=== PATIENT | male | born 1980 | race Caucasian/White ===

== ENCOUNTER → 2022-10-08 09:33 | Outpatient (BNVA) | payer MEDICAID, SELFPAY | PROVIDERS: Visit Provider Emergency Medicine | DX: M54.50 Low back pain, unspecified (principal); M54.9 Dorsalgia, unspecified | CPT/HCPCS: 72072; 72100 ==

== ENCOUNTER → 2023-02-23 09:03 | Outpatient (BNVA) | payer MEDICAID, SELFPAY | PROVIDERS: PCP Family Medicine; Visit Provider Family Medicine | DX: I10 Essential (primary) hypertension (principal) | CPT/HCPCS: 80053; 80061 ==

== ENCOUNTER → 2024-02-23 16:13 | Outpatient (BNVA) | payer MEDICAID, SELFPAY | PROVIDERS: PCP Family Medicine; Visit Provider Emergency Medicine | DX: M79.671 Pain in right foot (principal) | CPT/HCPCS: 73630 ==

== ENCOUNTER → 2024-07-11 10:21 | Outpatient (BNVA) | payer SELFPAY | PROVIDERS: PCP Family Medicine; Visit Provider Nurse Practitioner Family | DX: Z79.1 Long term (current) use of non-steroidal anti-inflammatories (NSAID) (principal); I10 Essential (primary) hypertension; M25.511 Pain in right shoulder; M54.50 Low back pain, unspecified; G89.29 Other chronic pain | CPT/HCPCS: 80053; 85025 ==

== ENCOUNTER 2024-11-11 06:30 | Outpatient (RCR) | payer MEDICAID, SELFPAY | END 2024-12-08 23:59 | disposition home or self-care (01) | LOC: SPT 06:30 | PROVIDERS: PCP Family Medicine; Visit Provider Family Medicine | DX: M54.50 Low back pain, unspecified (principal); G89.29 Other chronic pain | CPT/HCPCS: 97110; 97162; G0283 ==

== ENCOUNTER 2024-11-17 09:27 | Outpatient (CLI) | payer MEDICAID, SELFPAY ==
--- NOTE | 2024-11-17 10:15 | MR_ITS ---
WS: [id number] MRI LUMBAR SPINE NONCONTRAST TECHNIQUE: Sagittal T1, T2 and STIR imaging. Axial T1 and T2 imaging. CLINICAL INFORMATION: M54.50 - Low back pain, unspecified COMPARISON: None. FINDINGS: Mild lumbar curve. No acute compression. Disc bulging worse at L3-L5. Prominent central disc protrusion cervical spine on [employer] [facility] at C6-7. Congenital segmentation anomaly T10 and T11. L1-L2: Mild facet arthropathy. Spinal canal and foramen are patent. L2-L3: Mild annular bulging. Tiny RIGHT foraminal protrusion with mild RIGHT foraminal narrowing. Mild facet arthropathy. L3-L4: Mild annular bulging with a RIGHT paracentral disc protrusion. Impingement on the RIGHT subarticular recess and traversing RIGHT L4 nerve root. Mild central canal stenosis. Disc protrusion measures approximately 5 mm in AP dimension. Foramen are patent. Mild facet arthropathy. L4-L5: Mild annular bulging with a tiny RIGHT subarticular protrusion. Impingement on the RIGHT subarticular recess and traversing RIGHT L5 nerve root. Mild central canal stenosis. Mild facet arthropathy. Foramen are patent. L5-S1: Mild annular bulging. Slight impingement of traversing S1 nerve root in the subarticular recess. Moderate facet arthropathy. Foramen are patent. Visualized pelvic bony structures: Normal. Paravertebral soft tissues: Normal. MR/MR lumbar spine wo con* [id number] IMPRESSION: 1. Mild lumbar curve. No acute compression. 2. Prominent central disc protrusion L3-4 with mild central canal stenosis and impingement of the RIGHT greater than LEFT traversing L4 nerve roots. 3. RIGHT subarticular protrusion L4-5 impinges the traversing RIGHT L5 nerve r oot with mild central canal stenosis. 4. Disc bulge L5-S1 slightly impinges the RIGHT S1 nerve root. 5. Mild to moderate facet arthropathy L3-L5. 6. 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 7. Prominent central protrusion cervical spine [employer] [facility] at C6-7 eccentric to the LEFT.
== END 2024-11-17 09:28 | disposition home or self-care (01) ==
LOC: RAD 09:28
PROVIDERS: PCP Family Medicine; Visit Provider Family Medicine
DX: M51.26 Other intervertebral disc displacement, lumbar region (principal); G89.29 Other chronic pain; Z87.81 Personal history of (healed) traumatic fracture; M54.17 Radiculopathy, lumbosacral region; M43.8X6 Other specified deforming dorsopathies, lumbar region; M48.061 Spinal stenosis, lumbar region without neurogenic claudication; M51.379 Other intervertebral disc degeneration, lumbosacral region without mention of lumbar back pain or lower extremity pain; M47.896 Other spondylosis, lumbar region; R93.7 Abnormal findings on diagnostic imaging of other parts of musculoskeletal system; M50.223 Other cervical disc displacement at C6-C7 level; M51.369 Other intervertebral disc degeneration, lumbar region without mention of lumbar back pain or lower extremity pain
CPT/HCPCS: 72148

== ENCOUNTER → 2024-12-04 14:33 | Outpatient (BNVA) | payer MEDICAID, SELFPAY | PROVIDERS: PCP Family Medicine; Visit Provider Nurse Practitioner Family | DX: M54.50 Low back pain, unspecified (principal); G89.29 Other chronic pain; F17.200 Nicotine dependence, unspecified, uncomplicated | CPT/HCPCS: 99214 ==

== ENCOUNTER → 2024-12-05 14:37 | Outpatient (BNVA) | payer MEDICAID, SELFPAY | PROVIDERS: PCP Family Medicine; Visit Provider Orthopaedic Surgery | DX: M54.50 Low back pain, unspecified (principal); G89.29 Other chronic pain | CPT/HCPCS: 72110; 99204 ==

== ENCOUNTER 2024-12-09 06:00 | Outpatient (RCR) | payer MEDICAID, SELFPAY | END 2025-01-08 23:59 | disposition home or self-care (01) | LOC: SPT 06:00 | PROVIDERS: PCP Family Medicine; Visit Provider Family Medicine | DX: M54.50 Low back pain, unspecified (principal); G89.29 Other chronic pain | CPT/HCPCS: 97110; G0283 ==

== ENCOUNTER → 2024-12-25 14:37 | Outpatient (BNVA) | payer MEDICAID, SELFPAY | PROVIDERS: PCP Family Medicine; Visit Provider Nurse Practitioner Family | DX: M79.18 Myalgia, other site (principal); M54.50 Low back pain, unspecified; G89.29 Other chronic pain; F17.200 Nicotine dependence, unspecified, uncomplicated | CPT/HCPCS: 20553; 99214; J1010; J3490 ==

== ENCOUNTER → 2025-01-08 13:51 | Outpatient (BNVA) | payer MEDICAID, SELFPAY | PROVIDERS: PCP Family Medicine; Visit Provider Nurse Practitioner Family | DX: M54.50 Low back pain, unspecified (principal); G89.29 Other chronic pain | CPT/HCPCS: 99213 ==

== ENCOUNTER 2025-01-09 05:00 | Outpatient (RCR) | payer MEDICAID, SELFPAY | END 2025-02-07 23:59 | disposition home or self-care (01) | LOC: SPT 05:00 | PROVIDERS: PCP Family Medicine; Visit Provider Family Medicine | DX: M54.50 Low back pain, unspecified (principal); G89.29 Other chronic pain | CPT/HCPCS: 97110; 97530; G0283 ==

== ENCOUNTER → 2025-01-17 13:06 | Outpatient (BNVA) | payer MEDICAID, SELFPAY | PROVIDERS: PCP Family Medicine; Visit Provider Anesthesiology Pain Medicine | DX: M54.16 Radiculopathy, lumbar region (principal); M54.50 Low back pain, unspecified; G89.29 Other chronic pain; F17.200 Nicotine dependence, unspecified, uncomplicated | CPT/HCPCS: 64483; 64484; J1100; J3490; J9999 ==

== ENCOUNTER → 2025-01-29 12:53 | Outpatient (BNVA) | payer MEDICAID, SELFPAY | PROVIDERS: PCP Family Medicine; Visit Provider Nurse Practitioner Family | DX: M54.50 Low back pain, unspecified (principal); G89.29 Other chronic pain; F17.200 Nicotine dependence, unspecified, uncomplicated | CPT/HCPCS: 99214 ==

== ENCOUNTER → 2025-02-07 13:14 | Outpatient (BNVA) | payer MEDICAID, SELFPAY | PROVIDERS: PCP Family Medicine; Visit Provider Anesthesiology Pain Medicine | DX: M54.16 Radiculopathy, lumbar region (principal); M54.50 Low back pain, unspecified; G89.29 Other chronic pain | CPT/HCPCS: 64493; 64494; 64495; J3490; J9999 ==

== ENCOUNTER 2025-02-08 05:00 | Outpatient (RCR) | payer MEDICAID, SELFPAY | END 2025-03-10 23:59 | disposition home or self-care (01) | LOC: SPT 05:00 | PROVIDERS: PCP Family Medicine; Visit Provider Family Medicine | DX: M54.50 Low back pain, unspecified (principal); G89.29 Other chronic pain | CPT/HCPCS: 97110; 97530 ==

== ENCOUNTER → 2025-02-21 10:43 | Outpatient (BNVA) | payer MEDICAID, SELFPAY | PROVIDERS: PCP Family Medicine; Visit Provider Nurse Practitioner Family | DX: M54.50 Low back pain, unspecified (principal); G89.29 Other chronic pain | CPT/HCPCS: 99214 ==

== ENCOUNTER → 2025-03-08 13:50 | Outpatient (BNVA) | payer MEDICAID, SELFPAY | PROVIDERS: PCP Family Medicine; Visit Provider Orthopaedic Surgery | DX: M54.50 Low back pain, unspecified (principal); G89.29 Other chronic pain | CPT/HCPCS: 99213 ==

== ENCOUNTER 2025-03-11 05:00 | Outpatient (RCR) | payer MEDICAID, SELFPAY | END 2025-04-09 23:59 | disposition home or self-care (01) | LOC: SPT 05:00 | PROVIDERS: PCP Family Medicine; Visit Provider Family Medicine | DX: M54.50 Low back pain, unspecified (principal); G89.29 Other chronic pain | CPT/HCPCS: 97110; 97530 ==

== ENCOUNTER → 2025-03-13 13:35 | Outpatient (BNVA) | payer MEDICAID, SELFPAY | PROVIDERS: PCP Family Medicine; Visit Provider Anesthesiology Pain Medicine | DX: M47.816 Spondylosis without myelopathy or radiculopathy, lumbar region (principal); M54.9 Dorsalgia, unspecified; M54.50 Low back pain, unspecified; G89.29 Other chronic pain | CPT/HCPCS: 64493; 64494; 64495; J3490; J9999 ==

== ENCOUNTER → 2025-03-27 09:21 | Outpatient (BNVA) | payer MEDICAID, SELFPAY | PROVIDERS: PCP Family Medicine; Visit Provider Nurse Practitioner Family | DX: M54.50 Low back pain, unspecified (principal); G89.29 Other chronic pain | CPT/HCPCS: 99214 ==

== ENCOUNTER → 2025-04-03 15:01 | Outpatient (BNVA) | payer MEDICAID, SELFPAY | PROVIDERS: PCP Family Medicine; Visit Provider Nurse Practitioner Family | DX: L82.1 Other seborrheic keratosis (principal); L57.8 Other skin changes due to chronic exposure to nonionizing radiation; L81.4 Other melanin hyperpigmentation; D22.61 Melanocytic nevi of right upper limb, including shoulder; Z08 Encounter for follow-up examination after completed treatment for malignant neoplasm; Z85.828 Personal history of other malignant neoplasm of skin; L57.0 Actinic keratosis | CPT/HCPCS: 17000; 99213 ==

== ENCOUNTER 2025-04-10 05:00 | Outpatient (RCR) | payer MEDICAID, SELFPAY | END 2025-05-10 23:59 | disposition home or self-care (01) | LOC: SPT 05:00 | PROVIDERS: PCP Family Medicine; Visit Provider Family Medicine | DX: M54.50 Low back pain, unspecified (principal); G89.29 Other chronic pain; M47.816 Spondylosis without myelopathy or radiculopathy, lumbar region; M54.9 Dorsalgia, unspecified | CPT/HCPCS: 64635; 64636; J1100; J9999 ==

== ENCOUNTER → 2025-04-25 09:31 | Outpatient (BNVA) | payer MEDICAID, SELFPAY | PROVIDERS: PCP Family Medicine; Visit Provider Anesthesiology Pain Medicine | DX: M47.816 Spondylosis without myelopathy or radiculopathy, lumbar region (principal); M54.50 Low back pain, unspecified; G89.29 Other chronic pain; M54.9 Dorsalgia, unspecified | CPT/HCPCS: 64635; 64636; J1100; J9999 ==

== ENCOUNTER → 2025-05-09 09:57 | Outpatient (BNVA) | payer MEDICAID, SELFPAY | PROVIDERS: PCP Family Medicine; Visit Provider Nurse Practitioner Family | DX: M54.50 Low back pain, unspecified (principal); G89.29 Other chronic pain | CPT/HCPCS: 99214 ==

== ENCOUNTER → 2025-05-17 15:54 | Outpatient (BNVA) | payer MEDICAID, SELFPAY | PROVIDERS: PCP Family Medicine; Visit Provider Nurse Practitioner | DX: R19.7 Diarrhea, unspecified (principal) | CPT/HCPCS: 87493 ==

== ENCOUNTER → 2025-05-21 14:22 | Outpatient (BNVA) | payer MEDICAID, SELFPAY | PROVIDERS: PCP Family Medicine; Visit Provider Nurse Practitioner | DX: R19.7 Diarrhea, unspecified (principal) | CPT/HCPCS: 87045; 87427; 87449 ==

== ENCOUNTER → 2025-06-07 13:54 | Outpatient (BNVA) | payer MEDICAID, SELFPAY | PROVIDERS: PCP Family Medicine; Visit Provider Orthopaedic Surgery | DX: M54.50 Low back pain, unspecified (principal); G89.29 Other chronic pain | CPT/HCPCS: 99213 ==

== ENCOUNTER → 2025-06-21 14:02 | Outpatient (BNVA) | payer MEDICAID, SELFPAY | PROVIDERS: PCP Family Medicine; Visit Provider Orthopaedic Surgery | DX: M48.061 Spinal stenosis, lumbar region without neurogenic claudication (principal); Z01.818 Encounter for other preprocedural examination; G89.29 Other chronic pain | CPT/HCPCS: 36415; 80053; 81001; 85025; 99214 ==

== ENCOUNTER 2025-07-13 09:13 | Day surgery (SDC) | payer MEDICAID, SELFPAY ==
[2025-07-13] VITALS (10 sets, daily range): BP systolic 103–128; BP diastolic 70–85; PULSE 82–94; RESP 12–20; TEMP 36.3–37.3; O2SAT 95–99; BMI 22.5
--- NOTE | 2025-07-13 09:50 | ANES.PREANE2 ---
Pre-Anesthetic Assessment Height/Weight: Height 6 ft 5 in Weight 190 lb Temp Pulse Resp BP Pulse Ox O2 Del Method 99.2 F 82 18 127/74 99 Room Air 07/13/25 09:28 07/13/25 09:28 07/13/25 09:28 07/13/25 09:28 07/13/25 09:28 07/13/25 09:28 Preop Diagnosis: Right L3/4 disc herniation with radiculopathy Operation Date: 07/13/25 10:40 Proposed Procedures p Lumbar Spine Decompression Lumbar Decompression(Not Applicable) - Anurag Rock, DO Was Beta Александр taken within 24 hours: N/A Was Clonidine taken within 24 hours: N/A Last intake: Intake Last Liquid Date 07/12/25 Last Liquid Time 21:00 Last Solid Date 07/12/25 Last Solid Time 21:00 Social Tobacco and No alcohol Exam alert, oriented x 3, clear to auscultation bilaterally and regular rate & rhythm Airway Submandibular: within normal limits Cervical ROM: within normal limits Mallampati: Class III Comments: Comments: Very poor dentition, denies any loose. States he has been having tooth pain but no known abscess Anesthetic Plan ASA status: 2 Anesthesia: General Other: Patient states that he wakes up very violent and angry from anesthesia NPO since yesterday evening History of GERD, controlled with omeprazole PTSD. Labs are reviewed acceptable for procedure Plan for GETA Medications/Allergies Home Medications ?Medication ?Instructions ?Recorded ?Confirmed ?Last Taken ?Type omeprazole 40 mg capsule,delayed 40 mg PO DAILY 90 days #90 caps 03/14/25 07/12/25 07/12/25 20:00 Rx release tizanidine 4 mg tablet 8 mg (2 x 4 mg) PO BID PRN muscle 05/09/25 07/13/25 07/12/25 20:00 Rx spasticity #120 tabs topiramate 25 mg tablet (Topamax) 50 mg (2 x 25 mg) PO BID PRN nerve 05/09/25 07/06/25 Unknown Rx pain #120 tabs acetaminophen 300 mg-codeine 30 mg 1 tab PO BID PRN 07/06/25 07/06/25 Unknown History tablet ibuprofen 800 mg tablet 800 mg PO PRN PRN Pain 07/12/25 07/13/25 07/12/25 20:00 History Allergies Allergy/AdvReac Type Severity Reaction Status Date / Time latex Allergy Severe ALGY-Bliste Verified 07/13/25 09:38 r lidocaine Allergy Intermediate ALGY-Bliste Verified 07/13/25 09:38 r meperidine (From Demerol) Allergy Intermediate ADR-Halluci Verified 07/13/25 09:38 nating varenicline (From Chantix) Allergy Unknown Verified 07/13/25 09:38 Current Medications Generic Name Dose Route Start Last Admin Trade Name Freq PRN Reason Stop Dose Admin Sodium Chloride 1,000 mls @ 30 mls/hr 07/13/25 09:30 07/13/25 09:43 Sodium Chloride 0.9% IV 07/14/25 09:29 30 mls/hr .Q24H LEANDRO Administration PFSH Anesthesia Medical History Personality disorder PTSD (post-traumatic stress disorder) Basal cell carcinoma Surgical History S/P cholecystectomy Family History Sister Bleeding disorder Sister had passed blood clot to fetus while Clotting disorder Brother CAD (coronary artery disease) ventricles wraped around heart at . Father Cancer Diabetes Hypertension Other Thyroid disease Denies family history of Chronic kidney disease (CKD) Social History Smoking and tobacco/nicotine status: current every day tobacco/nicotine user
--- NOTE | 2025-07-13 10:15 | W.PM.OPSUD ---
Surgery/Procedure H&P Update DATE OF PROCEDURE: July 13, 2025 DATE H&P PERFORMED: 06/21/25 H&P UPDATE INFORMATION: I have reviewed H&P completed within last 30 days, I have examined patient prior to procedure and No changes to prior documentation PREOP DIAGNOSIS: Right L3/4 disc herniation with radiculopathy PLANNED PROCEDURE: Operation Date: 07/13/25 10:40 Proposed Procedures p Lumbar Spine Decompression Lumbar Decompression(Not Applicable) - Anurag Rock DO
[2025-07-13] MEDS: ceFAZolin 2,000 mg SDV 2000 MG IVP (10:30)
[2025-07-13] MEDS: lidocaine-epi 1% 20 mL INJ 10 ML INJECTION (11:05)
--- NOTE | 2025-07-13 11:35 | XR_ITS ---
WS: [id number] XR lumbar spine 2-3V* [id number] REASON FOR EXAM: OR PICS FINDINGS: Surgical instrument overlies the right lateral L3-L4 disc space. XR/XR lumbar spine 2-3V* [id number] IMPRESSION: Lumbar level localization and surgery as above.
--- NOTE | 2025-07-13 11:40 | PM.OP ---
Operative Report Date of procedure: July 13, 2025 Pre-op diagnosis: Right L3/4 disc herniation with radiculopathy Post-op diagnosis: same Procedure done: Right L3/4 laminectomy with partial facetectomy and discectomy Surgeon: Anurag Rock DO Estimated blood loss (mL): 10 Procedure: Right L3/4 laminectomy with partial facetectomy and discectomy Patient is brought to the operative suite. After undergoing anesthesia they are placed in the prone position. All areas of impingement are well padded. Patient is then prepped and draped in the normal sterile fashion. A skin incision is made over the L3/4 level. This is confirmed under c-arm guidance. A series of dilators are passed and the tubular retractor is docked on the L3 lamina. A bovie is used to clear the soft tissue off the lamina and the L 3/4 facet joint. A high speed karlos is then used to perform the laminectomy and take down the medial aspect of the L 3/4 facet joint. A kerrison rongeure was then used to take down the remaining lamina and smooth the edge of the laminectomy up to the point where the ligamentum flavum attaches. Attention was then brought to the medial aspect of the facet joint. The remaining medial aspect of the superior and inferior aspect of the facet joint were taken down with the kerrison from the pedicle of L3 to L 4. The facet joint had significant hypertrophy. Attention was then brought to the Ligamentum Flavum. The ligament was taken down from the lamina of L3 to L4 and out medially to the remaining facet joint. The ligament was thick. The dura was then exposed. The dura was in good repair. L4 nerve root was reflected medially disc was removed with micropituitary and curved curette. Disc base was irrigated loose fragments were removed. The L3 nerve was then traced with a curette out the L 3/4 foramen and found to be adequately decompressed. The L4 nerve was traced with a curette around the L4 pedicle. The lateral recess was opened with a kerrison helping to further decompress the L4 nerve. Wound is then irrigated copiously with saline and surgiflo is used to stop any bleeding. The tubular retractor is removed and the wound is closed with vicryl and monocryl suture. Steri strips were applied. A sterile dressing is then placed. Patient was then placed in the supine position and transferred to the PACU in stable condition.
[2025-07-13] MEDS: fentaNYL 50 mcg/mL INJ 2mL 100 MCG (11:55)
--- NOTE | 2025-07-13 12:19 | ANE.PACU2 ---
Inpatient post-anesthesia follow up: Airway intact: Yes Vital signs: Temperature 97.3 F Pulse Rate 84 Respiratory Rate 18 Blood Pressure 128/80 Pulse Oximetry 97 Oxygen Delivery Me thod Room Air Oxygen Flow Rate Fraction of Inspir ed Oxygen Hydration adequate: Yes Nausea and vomiting: No Pain level: 2 Mental status: Baseline
[2025-07-13] MEDS: HYDROcodone-acetaminophen 5-325 mg Tablet 1 TAB PO (12:29)
[2025-07-13] MEDS: ondansetron hcl ODT 4 mg Tab PO (12:45)
== END 2025-07-13 12:53 | disposition home or self-care (01) ==
PROVIDERS: PCP Family Medicine; Visit Provider Orthopaedic Surgery
PROC: (CPT 63005; principal; 2025-07-13 10:30)
PROC: (CPT 63030; 2025-07-13 10:30)
DX: M51.16 Intervertebral disc disorders with radiculopathy, lumbar region (principal); K21.9 Gastro-esophageal reflux disease without esophagitis; F43.10 Post-traumatic stress disorder, unspecified; C44.91 Basal cell carcinoma of skin, unspecified; F17.200 Nicotine dependence, unspecified, uncomplicated
CPT/HCPCS: 63030; 72100; 76000; J0690; J1100; J1885; J2250; J2405; J2704; J3010; J3490; J7030; J9999; Q0162

== ENCOUNTER → 2025-07-26 14:45 | Outpatient (BNVA) | payer MEDICAID, SELFPAY | PROVIDERS: PCP Family Medicine; Visit Provider Orthopaedic Surgery | DX: Z98.890 Other specified postprocedural states (principal) | CPT/HCPCS: 99024 ==

== ENCOUNTER → 2025-08-30 08:12 | Outpatient (BNVA) | payer MEDICAID, SELFPAY | PROVIDERS: PCP Family Medicine; Visit Provider Orthopaedic Surgery | DX: Z98.890 Other specified postprocedural states (principal) | CPT/HCPCS: 99024 ==

== ENCOUNTER → 2025-09-18 09:21 | Outpatient (BNVA) | payer MEDICAID, SELFPAY | PROVIDERS: PCP Family Medicine; Visit Provider Family Medicine | DX: Z13.220 Encounter for screening for lipoid disorders (principal); Z13.6 Encounter for screening for cardiovascular disorders; I10 Essential (primary) hypertension | CPT/HCPCS: 80053; 80061 ==